=== PATIENT | female | born 1940 | race Caucasian/White ===

== ENCOUNTER → 2017-11-26 | Outpatient (CLI) | payer MEDICARE ==
[~2017-11-26] MED LIST: REGADENOSON 0.4 MG/5 ML SYRINGE ONE
== END | disposition home or self-care (01) ==
LOC: CVU 08:57
PROVIDERS: ATTEND Internal Medicine Cardiovascular Disease
DX: I51.7 Cardiomegaly (principal); I65.23 Occlusion and stenosis of bilateral carotid arteries; E78.5 Hyperlipidemia, unspecified; J44.9 Chronic obstructive pulmonary disease, unspecified; F17.200 Nicotine dependence, unspecified, uncomplicated
CPT/HCPCS: 78452; 93017; 93306; 93880; A9502; J2785

== ENCOUNTER → 2018-01-13 | Outpatient (CLI) | payer MEDICARE | END | disposition home or self-care (01) | LOC: CFH 07:07 | PROVIDERS: ATTEND Family Medicine | DX: Z12.31 Encounter for screening mammogram for malignant neoplasm of breast (principal); Z85.3 Personal history of malignant neoplasm of breast | CPT/HCPCS: 77067 ==

== ENCOUNTER 2019-01-19 07:26 | Outpatient (CLI) | payer MEDICARE | END 2019-01-19 23:59 | disposition home or self-care (01) | LOC: CFH 07:26 | PROVIDERS: ATTEND Family Medicine | DX: Z12.31 Encounter for screening mammogram for malignant neoplasm of breast (principal) | CPT/HCPCS: 77067 ==

== ENCOUNTER 2019-11-26 10:56 | Outpatient (CLI) | payer MEDICARE ==
[2019-11-26] MEDS ORDERED: ASPI-430 PO (12:39)
[2019-11-26] MEDS ORDERED: fish oil PO (12:39)
[2019-11-26] MEDS ORDERED: folic acid PO (12:39)
[2019-11-26] MEDS ORDERED: calcium PO (12:39)
[2019-11-26] MEDS ORDERED: MULT-658 PO (12:39)
[2019-11-26] MEDS ORDERED: METH2.5T PO (12:39)
[2019-11-26] MEDS ORDERED: albuterol inhaler (12:39)
[2019-11-26] MEDS ORDERED: vitamin C PO (12:39)
[2019-11-26] MEDS ORDERED: PRED5TAB PO (12:40)
[2019-11-26 12:48] LABS: ALBUMIN 3.2 g/dL (3.4-5.0); ANION GAP 5 mmol/L (5-15); CALCIUM 9.4 mg/dL (8.5-10.1); CHLORIDE 104 mmol/L (98-107)
[2019-11-26 12:53] LABS: ALANINE AMINOTRANSFERASE 32 U/L (12-78); ALKALINE PHOSPHATASE 97 U/L (45-117); BILIRUBIN,TOTAL 0.3 mg/dL (0.2-1.0); CREATININE 0.59 mg/dL (0.55-1.02); TOTAL PROTEIN 6.7 g/dL (6.4-8.2)
[2019-11-26 13:08] LABS: BASOPHILS # (AUTO) 0.06 x10^3/uL (0-0.1); BASOPHILS % (AUTO) 1 % (0-1); EOSINOPHILS % (AUTO) 2 % (1-7); LYMPHOCYTES # (AUTO) 2.53 x10^3/uL (1-3.4); LYMPHOCYTES % (AUTO) 28 % (22-44); MD NO; MEAN CORPUSCULAR HEMOGLOBIN 29.8 pg (27.0-34.8); MEAN CORPUSCULAR HGB CONC 32.2 g/dL (32.4-35.8); MEAN CORPUSCULAR VOLUME 92.4 fL (80-100); MEAN PLATELET VOLUME 8.9 fL (7.4-10.4); MONOCYTES # (AUTO) 0.79 x10^3/uL (0.2-0.8); MONOCYTES % (AUTO) 9 % (2-9); NEUTROPHILS # (AUTO) 5.61 x10^3/uL (1.8-6.8); NEUTROPHILS % (AUTO) 61 % (42-75); PLATELET COUNT 340 x10^3/uL (130-400); RED BLOOD COUNT 4.63 x10^6/uL (3.82-5.3); RED CELL DISTRIBUTION WIDTH 15.2 % (9.6-15.2)
== END 2019-11-26 23:59 | disposition home or self-care (01) ==
LOC: STAR 10:56
PROVIDERS: ATTEND Urology
DX: Z01.818 Encounter for other preprocedural examination (principal); N13.1 Hydronephrosis with ureteral stricture, not elsewhere classified
CPT/HCPCS: 36415; 80053; 85025; 87077; 87086; 87186; 93005

== ENCOUNTER 2019-12-07 07:00 | Day surgery (SDC) | payer MEDICARE ==
[~2019-12-07] VITALS: Ht 157.5 cm; Wt 50.0 kg
[~2019-12-07 07:00] MED LIST changes: +ASPI-430 PO; +METH2.5T PO; +MULT-658 PO; +PRED5TAB PO; -REGADENOSON 0.4 MG/5 ML SYRINGE ONE; +albuterol inhaler; +calcium PO; +fish oil PO; +folic acid PO; +vitamin C PO
[2019-12-07] MEDS ORDERED: LACTATED RINGERS 1,000 ML IV SCH (07:04)
[2019-12-07] MEDS ORDERED: FENTANYL PF 100 MCG/2ML ONE ×2 (07:14→10:28)
[2019-12-07] MEDS ORDERED: GLYCOPYRROLATE 0.2MG/1ML, 5ML ONE (10:49)
[2019-12-07] MEDS ORDERED: ONDANSETRON 2MG/ML, 2ML ONE (10:49)
[2019-12-07] MEDS ORDERED: NEOSTIGMINE 1 MG/ML, 10ML ONE (10:49)
[2019-12-07] MEDS ORDERED: PROPOFOL 10 MG/ML, 20ML ONE (10:49)
[2019-12-07] MEDS ORDERED: SUCCINYLCHOLINE 20 MG/ML, 10ML ONE (10:49)
[2019-12-07] MEDS ORDERED: ROCURONIUM 10MG/ML,5ML ONE (10:49)
[2019-12-07] MEDS ORDERED: CEFAZOLIN 1,000 MG ONE (10:49)
[2019-12-07] MEDS ORDERED: DEXAMETHASONE 4 MG/ML, 1ML ONE (10:49)
== END 2019-12-07 12:50 | disposition home or self-care (01) ==
LOC: OUT 07:00
PROVIDERS: ATTEND Urology
DX: N13.5 Crossing vessel and stricture of ureter without hydronephrosis (principal); E78.00 Pure hypercholesterolemia, unspecified; F17.210 Nicotine dependence, cigarettes, uncomplicated; J43.9 Emphysema, unspecified; Z88.1 Allergy status to other antibiotic agents; Z88.0 Allergy status to penicillin; Z88.8 Allergy status to other drugs, medicaments and biological substances
CPT/HCPCS: 52332; 52341; 74018; 76000; C1726; C2617; J0690; J1100; J2405; J2704; J3010; J7120; J2710; J0330

== ENCOUNTER → 2020-01-21 | Outpatient (CLI) | payer MEDICARE | END | disposition home or self-care (01) | LOC: CFH 07:06 | PROVIDERS: ATTEND Family Medicine | DX: Z12.31 Encounter for screening mammogram for malignant neoplasm of breast (principal) | CPT/HCPCS: 77067 ==

== ENCOUNTER → 2021-01-23 | Outpatient (CLI) | payer MEDICARE | END | disposition home or self-care (01) | LOC: CFH 07:47 | PROVIDERS: ATTEND Family Medicine | DX: Z12.31 Encounter for screening mammogram for malignant neoplasm of breast (principal); Z12.2 Encounter for screening for malignant neoplasm of respiratory organs; Z87.891 Personal history of nicotine dependence; J84.10 Pulmonary fibrosis, unspecified; J98.4 Other disorders of lung; J43.9 Emphysema, unspecified; J92.9 Pleural plaque without asbestos | CPT/HCPCS: 71271; 77063; 77067 ==